=== PATIENT | male | born 1960 | race Caucasian/White ===

== ENCOUNTER → 2018-05-22 | Outpatient (CLI) | payer BC ==
[~2018-05-22] MED LIST: AMINO ACID; FURO-125 PO; FURO40TA4 PO; LACT10SO PO; LACT20SO2 PO; LANS15CA5 PO; LEVO750T9 PO; RIFA550T PO; SPIR50TA4 PO; [UNRECOGNIZED DRUG - OTHER] PO
--- NOTE | 2018-05-22 09:18 | Diagnostic Imaging Report ---
PROCEDURE: US abdomen complete. TECHNIQUE: Multiple real-time grayscale images were obtained over the abdomen in various projections. INDICATION: Alcoholic cirrhosis. Comparison with 10/06/2016. FINDINGS: The liver is contracted measuring 12 cm in length. There is marked increased echogenicity with heterogeneous appearance. No focal masses are demonstrated. Color Doppler imaging shows normal flow in the portal and hepatic vein. The gallbladder shows no gallstones. The gallbladder wall is thickened measuring 3 mm. There is no pericholecystic fluid. The common bile duct is not visualized due to bowel gas and echogenic liver. The pancreas is not seen. The portion of the aorta visualized and is not distended. Inferior vena cava appears normal. Right kidney measures 12.3 x 6.8 x 6.3 cm. The left kidney measures 11 x 5 x 5.5 cm. There is no evidence of hydronephrosis or renal masses. There is no ascites demonstrated. IMPRESSION: 1. Findings are consistent with chronic cirrhosis of liver with heterogeneous contracted small liver. 2. Portal and hepatic vein are patent. 3. Findings are consistent with chronic acalculous cholecystitis with thickening of the gallbladder wall. Bile ducts are not dilated. Dictated by: Dictated on workstation # [id number]
== END ==
LOC: RAD 07:13
PROVIDERS: ATTEND Nurse Practitioner Adult Health
DX: K70.30 Alcoholic cirrhosis of liver without ascites (principal)
CPT/HCPCS: 76700

== ENCOUNTER 2018-06-23 13:21 | Outpatient (CLI) | payer BC ==
[~2018-06-23] VITALS: Ht 175.3 cm; Wt 121.1 kg
[2018-06-23] MEDS ORDERED: NF-RIFA200 PO (13:22)
[2018-06-23] MEDS ORDERED: MULT-178 PO (13:22)
[2018-06-23] MEDS ORDERED: VIT1TABL26 PO (13:22)
[2018-06-23] MEDS ORDERED: OMG1KC PO (13:22)
== END 2018-06-23 13:24 | disposition home or self-care (01) ==
LOC: PREOP 13:21
PROVIDERS: ATTEND Surgery
DX: Z01.818 Encounter for other preprocedural examination (principal)

== ENCOUNTER 2018-06-28 08:52 | Day surgery (SDC) | payer BC ==
[~2018-06-28] VITALS: Ht 175.3 cm; Wt 121.1 kg
[~2018-06-28 08:52] MED LIST changes: +MULT-178 PO; +NF-RIFA200 PO; +OMG1KC PO; +VIT1TABL26 PO
[2018-06-28] MEDS ORDERED: NS IV 500 ML 500 ML ONE (09:06)
[2018-06-28 09:10] VITALS: BP 107/69
[2018-06-28] MEDS ORDERED: NS IV 500 ML 500 ML IV PRN (09:19)
[2018-06-28] MEDS ORDERED: MIDAZOLAM 2 MG/2 ML (VERSED) VIAL IVP ONE (09:30)
[2018-06-28] MEDS ORDERED: fentaNYL INJECTION 100 MCG/2 ML AMP IVP ONE (09:30)
[2018-06-28] MEDS ORDERED: LIDOCAINE JELLY 2% (XYLOCAINE) 5 ML TUBE MM PRN (09:30)
[2018-06-28] MEDS ORDERED: LIDOCAINE JELLY 2% (XYLOCAINE) 5 ML TUBE ONE (10:28)
[2018-06-28] MEDS ORDERED: fentaNYL INJECTION 100 MCG/2 ML AMP ONE (10:29)
[2018-06-28] MEDS ORDERED: MIDAZOLAM 2 MG/2 ML (VERSED) VIAL ONE ×4 (10:29)
--- NOTE | 2018-06-28 11:13 | Conscious Sedation/ASA ---
Conscious Sedation Pre-Proced Time Reviewed: 10:00 ASA Class: 3 Airway Mallampati Classification: ([place] appropriate class) I. II. III, IV Lungs Heart ASA score ASA 1: a normal healthy patient ASA 2: a patient with a mild systemic disease (mid diabetes, controlled hypertension, obesity ASA 3: a patient with a severe systemic disease that limits activity (angina , COPD, prior Myocardial infarction) ASA 4: a patient with an incapacitating disease that is a constant threat to life (CHF, renal failure) ASA 5: a moribund patient not expected to survive 24 hrs. (ruptured aneurysm) ASA 6: a declared brain patient whose organs are being harvested. For emergent operations, add the letter E after the classification Grade 2 Sedation Plan: Analgesia, Amnesia, Plan communicated to team members, Discussed options with patient/fam, Discussed risks with patient/fam Note The patient is an appropriate candidate to undergo the planned procedure, sedation, and anesthesia. The patient immediately re-assessed prior to indication. KRISHNA MULLEN MD Jun 28, 2018 11:13 am
--- NOTE | 2018-06-28 11:14 | Progress Note-Pre Operative ---
Pre-Operative Progress Note H&P Reviewed The H&P was reviewed, patient examined and no changes noted. Date Seen by Provider: Jun 28, 2018 Time Seen by Provider: 10:00 Date H&P Reviewed: Jun 28, 2018 Time H&P Reviewed: 10:00 Pre-Operative Diagnosis: liver cirrhosis, liver failure KRISHNA MULLEN MD Jun 28, 2018 11:14 am
[2018-06-28 11:15] VITALS: BP 121/71
--- NOTE | 2018-06-28 11:15 | Progress Note-Post Operative ---
Post-Operative Progess Note Surgeon (s)/Associate Brand Manager (s) Surgeon KRISHNA MULLEN MD Associate Brand Manager: none Pre-Operative Diagnosis liver cirrhosis, liver failure Post-Operative Diagnosis reflux esophagitis(stage 2), small type 1 hiatal hernia(1.5cm), moderate gastritis. Procedure & Operative Findings Date of Procedure 06/28/18 Procedure Performed/Findings EGD with bx. Anesthesia Type GET Estimated Blood Loss Estimated blood loss (mL): minimal Specimens/Packing Specimens Removed GE jxn, antrum KRISHNA MULLEN MD Jun 28, 2018 11:15 am
--- NOTE | 2018-06-28 11:18 | Discharge Inst-Surgical ---
D/C Lap Instructions-SEBAS Follow Up PRN Activity as tolerated High Fiber Diet 25g or more per day low sodium diet Avoid Alcohol, Caffeine, Spicy [place] and Acid foods. Drink 64 fluid oz or more of fluids per day. Symptoms to Report: Fever over 101 degree F, Nausea/Vomiting If any problems/questions: Contact your physician or go to Emergency Room KRISHNA MULLEN MD Jun 28, 2018 11:18 am
[2018-06-28 11:40] VITALS: BP 106/78
[2018-06-28 11:50] VITALS: BP 106/78
--- NOTE | 2018-06-28 12:26 | OPERATIVE REPORT ---
DATE OF SERVICE: 06/28/2018 ATTENDING BOILER TECHNICIAN: Ricki Sanchez APRN. PREOPERATIVE DIAGNOSIS: Liver cirrhosis and liver failure. POSTOPERATIVE DIAGNOSES: Reflux esophagitis stage II, no esophageal varices. Small hiatal hernia 1.5 cm in size, type 1 sliding. A moderate severity gastritis which was diffuse. No formal ulcerations or polyps. No distal obstructions. PROCEDURE: EGD with biopsy. SURGEON: Krishna Mullen MD. ANESTHESIA: Conscious sedation. ESTIMATED BLOOD LOSS: Minimal. FINDINGS: Reflux esophagitis stage II, no esophageal varices. Small hiatal hernia 1.5 cm in size, type 1 sliding. A moderate severity gastritis which was diffuse. No formal ulcerations or polyps. No distal obstructions. DISPOSITION: The patient tolerated the procedure well. INDICATIONS: The patient is a 57-year-old male known to us. He was initially seen in 2015 for ascites and the need for paracentesis. He had reported in June 2015, he was diagnosed with liver cirrhosis due to alcoholism. In September 2015, he [place] his first paracent[place] worked [place] greater than 15 years. His second one was performed in October 2015 and he did continue to have symptomatic ascites requiring several other paracentesis procedures. His history includes 6 to 7 alcoholic beverages on a daily basis for 20 to 25 years with his heaviest drinking period having occurred 6 to 7 years previous. Since his diagnosis and symptomatic ascites, he has stopped drinking completely and has been undergoing workup and evaluation for liver transplant. He has been following a biazzi nitrator operator at [facility] and needs a followup EGD to evaluate potential for esophageal varices. He otherwise states that he is doing well, tolerating a low sodium diet and has lost a significant amount of weight and his physical capacity has improved. DESCRIPTION OF PROCEDURE: The patient was brought to the endoscopy suite, laid in the left lateral decubitus position. After adequate IV pain and sedating medications and conscious sedation anesthesia, the mouthpiece was applied. Endoscope was placed in the mouth, visualizing the pharynx and hypopharyngeal region. Vocal cords, epiglottis and vallecula identified and appeared to be normal. The endoscope was then gently intubated at the esophageal opening and esophagus insufflated. Endoscope was then advanced through the first, second and third portions of the esophagus at the level of the GE junction, a reflux esophagitis staged to identify with edema and hyperemia; however, no ulcerations. A biopsy was taken with forceps with visualization of good hemostasis. There were no esophageal varices identified. The endoscope was then easily advanced in the stomach and endoscope retroflexed, visualizing a small type 1 hiatal hernia approximately 1.5 cm in size. There was a moderate severity gastritis, which is more diffuse with no formal ulcerations, polyps or any neoplasms identified. A biopsy was taken of the stomach antrum with forceps for H. pylori with visualization of good hemostasis. The endoscope was then advanced to the pylorus and first and second portion of the duodenum, which was normal with no ulcerations, polyps or any bleeding sources nor distal obstructions. The endoscope was then slowly withdrawn while taking a second look and suctioning of residual air with no additional findings. The patient tolerated the procedure well. We will recommend continued medical management with a low sodium diet and avoidance of caffeinated beverages, spicy, greasy and acidic foods as well as smaller and more frequent meals and avoidance of eating at night as well as some head elevation while lying supine at night. Job ID: [id number] DocumentID: [id number] Dictated Date: 06/28/2018 11:05:10 Radio Frequency Design Engineer Date: 06/28/2018 12:25:24 Dictated By: KRISHNA MULLEN MD
== END 2018-06-28 11:50 | disposition home or self-care (01) ==
LOC: ENDO 08:52
PROVIDERS: ATTEND Surgery
DX: K21.0 Gastro-esophageal reflux disease with esophagitis (principal); K44.9 Diaphragmatic hernia without obstruction or gangrene; K29.70 Gastritis, unspecified, without bleeding; K70.40 Alcoholic hepatic failure without coma; K70.30 Alcoholic cirrhosis of liver without ascites; Z79.899 Other long term (current) drug therapy; Z80.51 Family history of malignant neoplasm of kidney; Z80.42 Family history of malignant neoplasm of prostate

== ENCOUNTER → 2019-12-07 | Outpatient (CLI) | payer BC ==
--- NOTE | 2019-12-07 10:44 | Diagnostic Imaging Report ---
INDICATION: Alcoholic cirrhosis liver TECHNIQUE: Multiple real-time hendrickson scale sonographic images of the abdomen. CORRELATION STUDY: None FINDINGS: LIVER: Liver size. Small 15.3 cm. There is a very heterogeneous, somewhat nodular echotexture of the liver. No definitive focal lesion. There is however somewhat limited echo penetration through the liver parenchyma. There is normal, hepatopedal direction of flow within the main portal vein. GALLBLADDER: No shadowing gallstones or pericholecystic fluid. COMMON BILE DUCT: Could not be visualized, obscured. PANCREAS: Largely obscured. SPLEEN: Mildly enlarged 15 x 7 x 5.6 cm. ABDOMINAL AORTA: Unremarkable. INFERIOR VENA CAVA: Limited in visualization. RIGHT KIDNEY: 11.1 x 5.2 x 6.5 cm. Unremarkable. LEFT KIDNEY: 10.7 x 5.0 x 4.6 cm. Unremarkable. OTHER: No significant ascites. IMPRESSION: 1. Small, nodular appearance but the liver compatible with history of liver cirrhosis. 2. Mild splenomegaly. No appreciable abdominal ascites. Dictated by: Dictated on workstation # [id number]
== END ==
LOC: RAD 09:35
PROVIDERS: ATTEND Internal Medicine
DX: K70.31 Alcoholic cirrhosis of liver with ascites (principal); R16.1 Splenomegaly, not elsewhere classified
CPT/HCPCS: 76700

== ENCOUNTER 2020-06-23 05:36 | Outpatient (RCR) | payer BC ==
[~2020-06-23] VITALS: Ht 175.3 cm; Wt 140.4 kg
== END 2020-06-23 14:09 | disposition home or self-care (01) ==
LOC: PREOP 05:36
PROVIDERS: ATTEND Surgery
DX: Z01.818 Encounter for other preprocedural examination (principal); Z01.812 Encounter for preprocedural laboratory examination; Z12.11 Encounter for screening for malignant neoplasm of colon; Z20.828 Contact with and (suspected) exposure to other viral communicable diseases; Z87.19 Personal history of other diseases of the digestive system
CPT/HCPCS: 87635

== ENCOUNTER 2020-06-25 07:53 | Day surgery (SDC) | payer BC ==
[~2020-06-25] VITALS: Ht 175.3 cm; Wt 140.4 kg
[2020-06-25] MEDS ORDERED: MIDAZOLAM 2 MG/2 ML (VERSED) VIAL ONE (08:01)
[2020-06-25] MEDS ORDERED: PROPOFOL INJECTION 50 ML IV ONE (08:01)
[2020-06-25] MEDS ORDERED: LACTATED RINGERS 1,000 ML IV ONE (08:05)
[2020-06-25] MEDS ORDERED: LACTATED RINGERS 1,000 ML IV STA (08:09)
[2020-06-25 08:15] VITALS: BP 125/84
[2020-06-25] MEDS ORDERED: HURRICAINE EXT TUBE (BENZOCAINE) XX PRN (08:15)
[2020-06-25] MEDS ORDERED: LIDOCAINE JELLY 2% 6 ML SYRINGE MM PRN (08:15)
[2020-06-25] MEDS ORDERED: LIDOCAINE JELLY 2% 6 ML SYRINGE ONE (08:23)
--- NOTE | 2020-06-25 08:24 | Progress Note-Pre Operative ---
Pre-Operative Progress Note H&P Reviewed The H&P was reviewed, patient examined and no changes noted. Date Seen by Provider: Jun 25, 2020 Time Seen by Provider: 08:00 Date H&P Reviewed: Jun 25, 2020 Time H&P Reviewed: 08:00 Pre-Operative Diagnosis: GERD, screening o KRISHNA MULLEN MD Jun 25, 2020 08:24
--- NOTE | 2020-06-25 08:25 | Discharge Inst-Surgical ---
D/C Lap Instructions-SEBAS Follow Up Activity as tolerated High Fiber Diet 25g or more per day Avoid Alcohol, Caffeine, Spicy [place] and Acid foods. Drink 64 fluid oz or more of fluids per day. Symptoms to Report: Fever over 101 degree F, Nausea/Vomiting If any problems/questions: Contact your physician or go to Emergency Room KRISHNA MULLEN MD Jun 25, 2020 08:25
[2020-06-25] MEDS ORDERED: HYDROcodone/APAP 5 MG/325 MG (LORTAB) TAB PO PRN (08:30)
[2020-06-25] MEDS ORDERED: ACETAMINOPHEN 325 MG TABLET PO PRN (08:30)
[2020-06-25] MEDS ORDERED: ONDANSETRON 4 MG/2 ML (SDV) Z0FRAN IVP PRN (08:30)
[2020-06-25] MEDS ORDERED: morphine INJ 10 MG/ML 1ML (SYR OR VIAL) IVP PRN ×2 (08:30)
[2020-06-25] MEDS ORDERED: PHENYLEPHRINE 100 MCG/ML 10 ML (ANESTHESIA) SYR ONE (08:57)
[2020-06-25 09:00] VITALS: BP 113/65
[2020-06-25 09:05] VITALS: BP 94/51
[2020-06-25 09:10] VITALS: BP 94/51
--- NOTE | 2020-06-25 09:13 | Anesthesia-General Post-Op ---
MAC Patient Condition Mental Status/LOC: Same as Preop Cardiovascular: Satisfactory Nausea/Vomiting: Absent Respiratory: Satisfactory Pain: Controlled Complications: Absent Post Op Complications Complications None Follow Up Care/Instructions Patient Instructions None needed. Anesthesiology Discharge Order Discharge Order Patient is doing well, no complaints, stable vital signs, no apparent adverse anesthesia problems. No complications reported per nursing. TC LOGAN CRNA Jun 25, 2020 09:13
[2020-06-25 09:35] VITALS: BP 110/62
--- NOTE | 2020-06-25 09:56 | Progress Note-Post Operative ---
Post-Operative Progess Note Surgeon (s)/Concrete Puddler (s) Surgeon KRISHNA MULLEN MD Concrete Puddler: none Pre-Operative Diagnosis GERD, screening colo Post-Operative Diagnosis reflux esophagitis(stage 2), mild grade 1 esophageal varices, mild-moderate gastritis. normal colon and rectum Procedure & Operative Findings Date of Procedure 06/25/20 Procedure Performed/Findings EGD with bx. Colonoscopy. Anesthesia Type mac Estimated Blood Loss Estimated blood loss (mL): minimal Specimens/Packing Specimens Removed ge jxn, antrum KRISHNA MULLEN MD Jun 25, 2020 09:56
--- NOTE | 2020-06-25 21:41 | OPERATIVE REPORT ---
DATE OF SERVICE: 06/25/2020 PREOPERATIVE DIAGNOSES: History of liver cirrhosis and esophageal varices as well as gastroesophageal reflux disease, screening colonoscopy. POSTOPERATIVE DIAGNOSES: Reflux esophagitis stage II, mild stage I esophageal varices, small hiatal hernia 1 cm in size, mild to moderate gastritis. Colon and rectum appeared normal. PROCEDURES PERFORMED: Esophagogastroduodenoscopy with biopsy, colonoscopy. SURGEON: Moo Forrester MD. ANESTHESIA: Monitored anesthesia care. ESTIMATED BLOOD LOSS: Minimal. FINDINGS: Same as postoperative diagnoses. DISPOSITION: The patient tolerated the procedure well. INDICATIONS FOR PROCEDURE: The patient is a 59-year-old male known to us. We had initially seen him for recurrent ascites and liver failure. He had lived and worked in the country of [place] for approximately 15 years and states that he did drink a lot of alcohol. While there, he did develop liver failure and jaundice as well as liver cirrhosis. He was treated and eventually improved to the point where he has proceeded with the necessary medical management with cessation of alcohol as well as a restricted diet of sodium and water as well as protein intake. He was seeing a sausage cutter at [facility] for a possible transplant; however, over the years, he has improved dramatically and now his MELD score has decreased to the point where he is not a liver transplant candidate. He does have a history of esophageal varices as well as gastroesophageal reflux disease and is also in need of a colonoscopy. DESCRIPTION OF PROCEDURE: The patient was brought to the endoscopy suite and laid in the left lateral decubitus position. After adequate IV pain and sedative medications and monitored anesthesia care, the mouthpiece was applied. The endoscope was placed in the mouth, visualizing the pharynx and hypopharyngeal region. Vocal cords, epiglottis and vallecula identified and appeared to be normal. The endoscope was then gently intubated into the esophageal opening and esophagus insufflated. The endoscope was then advanced through the first, second and third portion of esophagus above the GE junction. At the distal third of the esophagus, a mild stage I esophageal varices identified. There was a reflux esophagitis stage II, no ulcers or strictures. A biopsy was taken of the GE junction with forceps with visualization of good hemostasis. The endoscope was then advanced in the stomach and the endoscope retroflexed, visualizing a small hiatal hernia approximately 1 cm in size. There was a mild to moderate gastritis. No formal ulcerations, polyps or any neoplasms. A biopsy was taken of the antrum to rule out H. pylori with visualization of good hemostasis. The endoscope was then advanced to the pylorus and the first and second portion of the duodenum with no ulcerations as well as no distal obstructions. The endoscope was slowly withdrawn while taking a second look and suctioning residual air with no additional findings. The prostate gland was palpable and appeared normal. The endoscope was then intubated to the anus and rectum gently insufflated. The endoscope was then advanced through the valves of [place] of the rectum with no polyps or any neoplasms identified. Through the sigmoid colon, there were no diverticulosis. the endoscope was then advanced through the descending, tranverse and ascending colon to the cecum which were normal. The endoscope was then withdrawn while taking a second look and suctioning of residual air with no additional findings. The patient tolerated the procedure well. We will recommend continued medical management with the necessary lifestyle and diet accommodation for his previous liver failure; however, also avoid spicy, greasy acidic foods and caffeinated beverages and taking small and more frequent meals and avoidance of eating at night. We will also recommend a high fiber diet with at least 30 grams of fiber daily to promote soft stools on a daily basis. Job ID: [id number] DocumentID: [id number] Dictated Date: 06/25/2020 09:16:40 Supervising Producer Date: 06/25/2020 10:40:08 Dictated By: MD ROZ CARO
== END 2020-06-25 10:09 | disposition home or self-care (01) ==
LOC: ENDO 07:53
PROVIDERS: ATTEND Surgery
DX: Z12.11 Encounter for screening for malignant neoplasm of colon (principal); K21.0 Gastro-esophageal reflux disease with esophagitis; K29.50 Unspecified chronic gastritis without bleeding; K70.30 Alcoholic cirrhosis of liver without ascites; I85.10 Secondary esophageal varices without bleeding; F10.11 Alcohol abuse, in remission; G47.33 Obstructive sleep apnea (adult) (pediatric); J44.9 Chronic obstructive pulmonary disease, unspecified; E66.01 Morbid (severe) obesity due to excess calories; Z68.42 Body mass index [BMI] 45.0-49.9, adult
CPT/HCPCS: 88305

== ENCOUNTER → 2020-11-10 | Outpatient (CLI) | payer BC ==
--- NOTE | 2020-11-10 11:02 | Diagnostic Imaging Report ---
INDICATION: Cirrhosis. PROCEDURE: Ultrasound abdomen complete. TECHNIQUE: Multiple real-time grayscale images were obtained of the abdomen in various projections. FINDINGS: Liver is normal in size at 13.5 cm. There is parenchymal heterogeneity. Liver does show increased echogenicity consistent with hepatic steatosis. No discrete liver mass is identified. Portal vein is patent and shows normal direction of flow. Gallbladder is without stones or sludge. No wall thickening or biliary ductal dilatation is seen. Pancreas is unremarkable. Spleen is normal in size at 10.5 cm. Aorta is nonaneurysmal. IVC is patent. Kidneys are without calculi or hydronephrosis. There is no ascites. IMPRESSION: Hepatic steatosis. No discrete liver mass is detected. Dictated by: Dictated on workstation # [id number]
== END ==
LOC: RAD 08:35
PROVIDERS: ATTEND Internal Medicine
DX: K70.31 Alcoholic cirrhosis of liver with ascites (principal); K76.0 Fatty (change of) liver, not elsewhere classified
CPT/HCPCS: 76700

== ENCOUNTER → 2021-06-02 | Outpatient (CLI) | payer BC ==
[~2021-06-02] MED LIST changes: -LACT10SO PO; +LACT10SO3 PO
--- NOTE | 2021-06-02 10:20 | Diagnostic Imaging Report ---
PROCEDURE: US Hepatic (Liver). TECHNIQUE: Multiple real-time grayscale images were obtained over the right upper quadrant in various projections. INDICATION: Alcoholic cirrhosis. FINDINGS: Liver is very echogenic and contracted measuring 12 cm. No definite masses are seen though detail is limited due to acoustical shadowing. Gallbladder appears normal with no gallstones or wall thickening. Common bile duct measures 5 mm. Midline structures are obscured by bowel gas. The IVC and portal vein appear normal with Doppler sampling. Right kidney measures 10.8 x 5 x 4.8 cm. There is no ascites. Negative Goldberg sign. IMPRESSION: Echogenic contracted gallbladder consistent with the history of alcoholic cirrhosis. No findings are seen to suggest portal hypertension. Dictated by: Dictated on workstation # [id number]
== END ==
LOC: RAD 08:30
PROVIDERS: ATTEND Internal Medicine
DX: K70.30 Alcoholic cirrhosis of liver without ascites (principal)
CPT/HCPCS: 76705

== ENCOUNTER → 2022-01-15 | Outpatient (CLI) | payer BC ==
--- NOTE | 2022-01-15 07:55 | Diagnostic Imaging Report ---
PROCEDURE: US Abdomen, limited. INDICATION: ALCOHOLIC CIRRHOSIS OF LIVER WITHOUT ASCITES TECHNIQUE: Multiple grayscale sonographic images were obtained of the right upper quadrant of the abdomen. CORRELATION STUDY: None FINDINGS: LIVER: Generalized increased echogenicity liver consistent with fatty infiltration. Liver enlarged at 19.1 cm. The main portal vein is patent and with normal direction of flow. GALLBLADDER: The gallbladder demonstrates no definitive shadowing gallstones, abnormal gallbladder wall thickening or pericholecystic fluid. COMMON BILE DUCT: Nondilated at 0.4 cm. AORTA/IVC: Not well visualized. PANCREAS: Visualized portions appearing unremarkable. RIGHT KIDNEY: 10.6 x 5.2 x 6.2 cm. No hydronephrosis. OTHER: No significant right upper quadrant ascites. IMPRESSION: 1. Hepatomegaly with steatosis. Dictated by: Dictated on workstation # [id number]
== END ==
LOC: RAD 07:12
PROVIDERS: ATTEND Internal Medicine
DX: K70.30 Alcoholic cirrhosis of liver without ascites (principal)
CPT/HCPCS: 76705